=== PATIENT | male | born 1985 | race Two or more races ===

== ENCOUNTER 2017-11-08 14:51 | Emergency (ER) | payer OTHER ==
[~2017-11-08] VITALS: Ht 182.9 cm; Wt 68.0 kg
--- OUTSIDE RECORDS SUMMARY | 2017-11-08 14:54 | XMS REPORT ---
[facility] Address Unknown Phone Unavailable Care Team Providers Care Secret Service Agent Name Role Phone ALENA GAUTAM Unavailable Unavailable Problems This patient has no known problems. Allergies, Adverse Reactions, Alerts This patient has no known allergies or adverse reactions. Medications This patient has no known medications. Results Test Description Test Time Test Comments Text Results Atomic Results Result Comments BASIC METABOLIC PANEL 2016-10-14 14:25:00 SODIUM (BEAKER) (test vbqy=600) 143 meq/L 135-148 POTASSIUM (BEAKER) (test btsx=967) 4.1 meq/L 3.6-5.5 CHLORIDE (BEAKER) (test imvz=416) 107 meq/L 98-106 CO2 (BEAKER) (test xbgk=366) 25 meq/L 24-32 BLOOD UREA NITROGEN (BEAKER) (test kirg=335) 13 mg/dL 10-26 CREATININE (BEAKER) (test ywdt=521) 0.98 mg/dL 0.50-1.20 GLUCOSE RANDOM (BEAKER) (test mqvk=352) 90 mg/dL 70-110 CALCIUM (BEAKER) (test juyk=460) 8.9 mg/dL 8.5-10.5 EGFR (BEAKER) (test etob=1633) 110 mL/min/1.73 sq m INSUFFICIENT CLINICAL DATA TO CALCULATE ESTIMATED GFR. CBC W/PLT COUNT & AUTO [id number] 14:12:00* Test Item Value Reference Range Comments WHITE BLOOD CELL COUNT (BEAKER) (test ddaf=201) 3.3 K/ L 4.0-10.0 RED BLOOD CELL COUNT (BEAKER) (test nlwk=679) 5.03 M/ L 4.20-5.80 HEMOGLOBIN (BEAKER) (test vgxq=461) 14.5 GM/DL 13.0-16.8 HEMATOCRIT (BEAKER) (test uria=307) 42.8 % 40.0-50.0 MEAN CORPUSCULAR VOLUME (BEAKER) (test cxrv=032) 85.1 fL 82.0-98.0 MEAN CORPUSCULAR HEMOGLOBIN (BEAKER) (test bsxp=616) 28.8 pg 27.0-33.0 MEAN CORPUSCULAR HEMOGLOBIN CONC (BEAKER) (test hwwy=738) 33.9 GM/DL 32.0- 36.0 RED CELL DISTRIBUTION WIDTH (BEAKER) (test hhvq=693) 11.5 % 12.0-15.0 PLATELET COUNT (BEAKER) (test rvfy=863) 272 K/CU MM 150-430 MEAN PLATELET VOLUME (BEAKER) (test fywv=714) 7.4 fL 6.5-10.5 NEUTROPHILS RELATIVE PERCENT (BEAKER) (test xbnf=192) 43 % LYMPHOCYTES RELATIVE PERCENT (BEAKER) (test bcei=668) 42 % MONOCYTES RELATIVE PERCENT (BEAKER) (test covw=751) 12 % EOSINOPHILS RELATIVE PERCENT (BEAKER) (test ilzn=912) 3 % BASOPHILS RELATIVE PERCENT (BEAKER) (test cegj=439) 1 % NEUTROPHILS ABSOLUTE COUNT (BEAKER) (test rkwy=177) 1.40 K/ L 1.80-8.00 LYMPHOCYTES ABSOLUTE COUNT (BEAKER) (test qtkd=355) 1.40 K/ L 1.48-4.50 MONOCYTES ABSOLUTE COUNT (BEAKER) (test asaf=431) 0.40 K/ L 0.00-1.30 EOSINOPHILS ABSOLUTE COUNT (BEAKER) (test brgx=826) 0.10 K/ L 0.00-0.50 BASOPHILS ABSOLUTE COUNT (BEAKER) (test fzwn=710) 0.00 K/ L 0.00-0.20
--- OUTSIDE RECORDS SUMMARY | 2017-11-08 14:54 | XMS REPORT | Clinical Summary ---
Author Author [facility] Address Unknown Phone Unavailable Care Team Providers Care House Decorator Name Role Phone PCP Unavailable Allergies No Known Allergies Current Medications Prescription Sig. Disp. Refills Start End Date Status Date naproxen (NAPROSYN) 500 Take 400 mg by mouth Active MG tablet daily . temazepam (RESTORIL) 15 Take 15 mg by mouth every Active mg capsule night as needed for Sleep. Active Problems Problem Noted Date Pain from implanted hardware 10/16/2016 Acute right ankle pain 10/14/2016 Family History Medical History Relation Name Comments High blood pressure Father Cancer Mother Relation Name Status Comments Father Alive Mother Social History Tobacco Use Types Packs/Day Years Used Date Former Smoker 5 Quit: 06/02/2010 Smokeless Tobacco: Never Used Comments: Patient was a social smoker only about one pack a month Alcohol Use Drinks/Week oz/Week Comments Yes 2 Cans of 1.2 2 beers a week beer Sex Assigned at Date Recorded Not on file Last Filed Vital Signs Not on file Plan of Treatment Health Maintenance Due Date Last Done Comments INFLUENZA VACCINE 03/02/2018 Results Not on fileafter 11/07/2016
[2017-11-08] MEDS ORDERED: KETOROLAC TROMETHAMINE 60 MG/2 ML VIAL IM ONE (15:15)
[2017-11-08] MEDS ORDERED: PREDNISONE 20 MG TAB PO ONE (15:15)
[2017-11-08] MEDS ORDERED: CYCLOBENZAPRINE HCL 10 MG TAB PO ONE (15:15)
[2017-11-08] MEDS ORDERED: HYDROCODONE/APAP 10MG-325MG TAB PO ONE (16:00)
[2017-11-09] MEDS ORDERED: PREDNISONE 20 MG TAB PO SCH (09:00)
== END 2017-11-08 15:50 | disposition home or self-care (01) ==
LOC: FSED 14:51
DX: M54.5 Low back pain (principal); S39.012A Strain of muscle, fascia and tendon of lower back, initial encounter; M62.830 Muscle spasm of back
CPT/HCPCS: 71046; 81003; 99284; J1885